=== PATIENT | female | born 1995 | race African-American/Black ===

== ENCOUNTER 2019-01-22 00:58 | Emergency (ER) | payer MEDICAID, OTHER ==
[~2019-01-22] VITALS: Ht 162.6 cm; Wt 59.9 kg
[~2019-01-22 00:58] MED LIST: IBUPROFEN600 MG ORAL; TRAMADOL HCL50 MG ORAL
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
[2019-01-22 01:43] VITALS: BP 111/71
[2019-01-22] MEDS ORDERED: IBUPROFEN600 MG ORAL (02:34)
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
== END 2019-01-22 02:42 | disposition home or self-care (01) ==
LOC: EMR 02:00
DX: S16.1XXA Strain of muscle, fascia and tendon at neck level, initial encounter (principal); S39.012A Strain of muscle, fascia and tendon of lower back, initial encounter; V43.52XA Car driver injured in collision with other type car in traffic accident, initial encounter; Y92.410 Unspecified street and highway as the place of occurrence of the external cause
CPT/HCPCS: 72040; 99283

== ENCOUNTER 2019-07-20 07:24 | Emergency (ER) | payer OTHER ==
[~2019-07-20] VITALS: Ht 162.6 cm; Wt 60.3 kg
[2019-07-20] MEDS ORDERED: NKM (07:31)
[2019-07-20 07:35] VITALS: BP 117/60
[2019-07-20] MEDS ORDERED: Albuterol ud Inhalation HHN ONE (07:45)
--- NOTE | 2019-07-20 07:49 | Emergency Room Report ---
History of Present Illness General Chief Complaint: Upper Respiratory Illness Source: Patient Present Illness HPI Patient presents with 4 days of cough and sore throat. She is producing green phlegm without any blood. She denies any fevers or chills. When this began she had a headache. She did not receive a flu vaccination. She does not hear herself wheezing. She has no history of asthma. There is no nausea, vomiting, diarrhea or dysuria. She denies muscle aches or joint pain at this time. There is no rash. Last menstruation was recent and she does not believe she is at this time. Not exposed to cigarette smoke. 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 Last Menstrual Period: 06/01/19 Now: No Reviewed Nursing Documentation: PMH: Agreed; PSxH: Agreed Nursing Documentation-PMH Past Medical History: No Stated History Review of Systems All Other Systems: negative except mentioned in HPI Physical Exam Vital Signs Date Time Temp Pulse Resp B/P (MAP) Pulse Ox O2 Delivery O2 Flow Rate FiO2 07/20/19 07:28 97.9 76 18 119/74 (89) 100 Room Air Sp02 EP Interpretation: reviewed, normal General Appearance: well appearing, no apparent distress, GCS 15 Head: normocephalic Eyes: bilateral eye normal inspection, bilateral eye PERRL, bilateral eye EOMI ENT: moist mucus membranes, pharyngeal erythema Neck: supple Respiratory: no respiratory distress, crackles - Left base, speaking full sentences Cardiovascular #1: regular rate, rhythm Cardiovascular #2: 2+ radial (R) Gastrointestinal: normal inspection, normal bowel sounds, non tender, no mass, non-distended Musculoskeletal: back normal, normal range of motion Neurologic: alert, oriented x3, grossly normal Psychiatric: mood/affect normal Skin: no rash Medical Decision Making Diagnostic Impression: Primary Impression: Atypical pneumonia ER Course Patient presents with 4 days of cough and sore throat. Differential includes strep, viral, pneumonia and possibly bronchospasm. Due to the exam chest x-ray is indicated. Also the patient will be receiving a breathing treatment with albuterol. Without fever and based on the exam influenza is less likely. Increase king right base. Urinalysis negative and negative test. Improved with treatment. Antibiotics begun for abnormal x-ray. Discussed findings with patient and treatment plan. Patient stable for outpatient observation and treatment. Laboratory Tests Test 07/20/19 08:25 Urine Color Pale yellow Urine Appearance Clear Urine pH 6 (4.5-8.0) Urine Specific [place] 1.020 (1.005-1.035) Urine Protein Negative (NEGATIVE) Urine Glucose (UA) Negative (NEGATIVE) Urine Ketones Negative (NEGATIVE) Urine Blood Negative (NEGATIVE) Urine Nitrite Negative (NEGATIVE) Urine Bilirubin Negative (NEGATIVE) Urine Urobilinogen Normal MG/DL (0.0-1.0) Urine Leukocyte Esterase 1+ (NEGATIVE) H Urine RBC 0 /HPF (0 - 2) Urine WBC 0-2 /HPF (0 - 2) Urine Squamous Epithelial Cells Occasional /LPF Urine Bacteria Few /HPF (NONE) Urine HCG, Qualitative Negative (NEGATIVE) Chest X-Ray Diagnostic Results Chest X-Ray Diagnostic Results : Chest X-Ray Ordered: Yes # of Views/Limited/Complete: 1 View Indication: Other EP Interpretation: Yes Interpretation: no effusion, no pneumothorax, other - increased king RLL, nipple piercings Impression: Other Electronically Signed by: Electronically signed by Florentin Maradiaga MD Last Vital Signs Date Time Temp Pulse Resp B/P (MAP) Pulse Ox O2 Delivery O2 Flow Rate FiO2 07/20/19 09:26 97.3 86 18 125/63 100 Room Air 07/20/19 08:19 21 Status: improved Disposition: HOME, SELF-CARE Condition: Improved Scripts Albuterol Sulfate* (ALBUTEROL SULFATE MDI*) 8.5 Gm Hfa.aer.ad 2 PUFF INH Q6H PRN for cough or wheezing, #1 EA 0 Refills Prov: Florentin Maradiaga MD 07/20/19 Azithromycin* (ZITHROMAX*) 250 Mg Tablet 250 MG ORAL DAILY, #4 TAB Prov: Florentin Maradiaga MD 07/20/19 Guaifenesin/Codeine Phos* (ROBITUSSIN AC*) 118 Ml Liquid 5 ML ORAL Q6H PRN for For Cough, #60 ML 0 Refills Prov: Florentin Maradiaga MD 07/20/19 Referrals: [facility],REFERRING (PCP) Florentin Maradiaga MD Jul 20, 2019 07:49
[2019-07-20] MEDS ORDERED: Azithromycin 250mg tab ORAL ONE (08:30)
[2019-07-20 08:31] VITALS: BP 116/66
[2019-07-20 08:37] LABS: APPEARANCE,URINE CLEAR; BILIRUBIN, URINE NEGATIVE (NEGATIVE); COLOR,URINE PALE YELLOW; GLUCOSE, URINE (UA) NEGATIVE (NEGATIVE); KETONES,URINE NEGATIVE (NEGATIVE); LEUKOCYTE ESTERASE ,URINE 1+ (NEGATIVE); NITRITE,URINE NEGATIVE (NEGATIVE); PH,URINE 6 (4.5-8.0); PROTEIN,URINE NEGATIVE (NEGATIVE); UROBILINOGEN,URINE NORMAL MG/DL (0.0-1.0)
[2019-07-20] MEDS ORDERED: ALBUTEROL SULF8.5 GM INH (08:46)
[2019-07-20] MEDS ORDERED: ZITHROMAX250 MG ORAL (08:46)
[2019-07-20] MEDS ORDERED: GUAIFENESIN-CO118 M1 ORAL (08:46)
[2019-07-20 09:26] VITALS: BP 125/63
--- NOTE | 2019-07-20 10:07 | Diagnostic Imaging Report ---
Indication: Cough Technique: One view of the chest Comparison: none Findings: Lungs and pleural spaces are clear. Heart size is normal. Impression: No acute process
== END 2019-07-20 09:26 | disposition home or self-care (01) ==
LOC: EMR 07:40
DX: J18.9 Pneumonia, unspecified organism (principal); R51 Headache
CPT/HCPCS: 71045; 81003; 81025; Q0144; Z7502; 99284

== ENCOUNTER 2019-07-27 22:52 | Emergency (ER) | payer OTHER ==
[~2019-07-27] VITALS: Ht 162.6 cm; Wt 59.9 kg
[~2019-07-27 22:52] MED LIST changes: +ALBUTEROL SULF8.5 GM INH; +GUAIFENESIN-CO118 M1 ORAL; +NKM; +ZITHROMAX250 MG ORAL
[2019-07-27 23:03] VITALS: BP 110/60
--- NOTE | 2019-07-27 23:04 | NUR ---
ED Nurse Note: PT walked in to ED for C/O pain with laceration to left thumb area while cutting something with a blade. no active bleeding present at this time.
[2019-07-27] MEDS ORDERED: BACITRACIN1 EACH TOPIC (23:58)
--- NOTE | 2019-07-27 23:58 | Emergency Room Report ---
History of Present Illness General Chief Complaint: Laceration Source: Patient Present Illness HPI 24-year-old female who presents with 1 cm distal laceration to left thumb. She sustained laceration while she was at work cutting opening boxes with a steam box hand. She stated the injury happened at 4 AM. She went home fell asleep and did not get evaluated until tonight. Patient cleaned wound with soap and water. She also used a peroxide-like cleaning agent. Patient does not know her last tetanus immunization Allergies: Coded Allergies: NO KNOWN ALLERGIES (Unverified Allergy, Unknown, 01/22/19) Nursing Documentation-[facility] Past Medical History: No Stated History Review of Systems Constitutional: Denies: chills, fever Respiratory: Denies: cough, shortness of breath Cardiovascular: Denies: chest pain, palpitations Gastrointestinal: Denies: diarrhea, vomiting Genitourinary: Denies: hematuria, pain Musculoskeletal: Denies: joint swelling Skin: Reports: other - Laceration; Denies: rash, lesions Neurological: Denies: headache, dizziness Physical Exam Vital Signs Date Time Temp Pulse Resp B/P (MAP) Pulse Ox O2 Delivery O2 Flow Rate FiO2 07/27/19 22:58 98.1 76 19 105/62 (76) 99 Room Air Sp02 EP Interpretation: reviewed General Appearance: well appearing, no apparent distress, non-toxic Head: normocephalic, atraumatic Eyes: bilateral eye normal inspection ENT: hearing grossly normal, EOM grossly intact, moist mucus membranes Neck: supple Respiratory: lungs clear, normal breath sounds, no respiratory distress, speaking full sentences Cardiovascular #1: regular rate, rhythm, normal capillary refill Cardiovascular #2: 2+ radial (R), 2+ radial (L) Gastrointestinal: soft, non-distended Rectal: deferred Musculoskeletal: moves extm spontaneously, no lower extremity edema Neurologic: grossly normal Psychiatric: mood/affect normal Skin: warm/dry, normal turgor, laceration - 1 cm linear laceration to distal left thumb, no active bleeding, clean, dry Medical Decision Making Diagnostic Impression: Primary Impression: Thumb laceration ER Course Superficial left thumb laceration occurring at 4 AM yesterday.unknown last tetanus immunization. Greater than 12 hours at this time will not repair with closed sutures. Small amount of granulation tissue already noted. Recommended keeping wound clean dry and intact. Patient given immunization to tetanus. Patient recommend follow-up in 2 to 3 days for wound check and reevaluation. Last Vital Signs Date Time Temp Pulse Resp B/P (MAP) Pulse Ox O2 Delivery O2 Flow Rate FiO2 07/27/19 23:03 98.0 88 19 110/60 99 Room Air Disposition: HOME, SELF-CARE Condition: Stable Scripts Bacitracin (BACITRACIN*) 1 Each Packet 1 PACKET TOPIC BID for 5 Days, #10 PACKET 0 Refills Prov: Sae Hansen M.D. 07/27/19 Patient Instructions: Laceration Care, Adult Additional Instructions: Please follow-up with primary care doctor in 2 to 3 days for reevaluation. Return to emergency room if you have worsening redness, severe pain or any new symptoms to the injury Sae Hansen M.D. Jul 27, 2019 23:58
[2019-07-28] MEDS ORDERED: Tetanus/Diptheria/Pertussis IM ONE ×2 (00:03)
[2019-07-28] MEDS ORDERED: Bacitracin Oint UD TOPIC ONE ×2 (00:03)
[2019-07-28 00:26] VITALS: BP 115/65
--- NOTE | 2019-07-28 00:26 | NUR ---
ER DISCHARGE NOTE: Patient is cleared to be discharged per ERMD, pt is aox4, on room air, with stable vital signs. pt was given dc and prescription instructions, pt was able to verbalize understanding, pt id band removed without complications. pt is able to ambulate with steady gait. pt took all belongings.
== END 2019-07-28 00:26 | disposition home or self-care (01) ==
LOC: EMR 23:56
DX: S61.012A Laceration without foreign body of left thumb without damage to nail, initial encounter (principal); W26.8XXA Contact with other sharp object(s), not elsewhere classified, initial encounter; Y93.89 Activity, other specified; Y92.9 Unspecified place or not applicable
CPT/HCPCS: 90471; 90715; Z7502; 99282

== ENCOUNTER 2019-09-17 22:54 | Emergency (ER) | payer OTHER ==
[~2019-09-17] VITALS: Ht 162.6 cm; Wt 60.8 kg
[~2019-09-17 22:54] MED LIST changes: +BACITRACIN1 EACH TOPIC
[2019-09-17 23:20] VITALS: BP 122/75
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
--- NOTE | 2019-09-17 23:26 | NUR ---
ED Nurse Note: ERMD at bedside.
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
[2019-09-18 00:12] LABS: APPEARANCE,URINE CLEAR; BILIRUBIN, URINE NEGATIVE (NEGATIVE); COLOR,URINE PALE YELLOW; GLUCOSE, URINE (UA) NEGATIVE (NEGATIVE); KETONES,URINE NEGATIVE (NEGATIVE); LEUKOCYTE ESTERASE ,URINE NEGATIVE (NEGATIVE); NITRITE,URINE NEGATIVE (NEGATIVE); PH,URINE 6 (4.5-8.0); PROTEIN,URINE NEGATIVE (NEGATIVE); UROBILINOGEN,URINE NORMAL MG/DL (0.0-1.0)
[2019-09-18] MEDS ORDERED: IBUPROFEN600 MG ORAL (00:20)
[2019-09-18 00:22] VITALS: BP 128/76
--- NOTE | 2019-09-18 00:22 | NUR ---
ER DISCHARGE NOTE: Patient is cleared to be discharged per ERMD, pt is aox4, on room air, with stable vital signs. pt was given dc and prescription instructions, pt was able to verbalize understanding, pt id band removed. pt is able to ambulate with steady gait. pt took all belongings. pt stable upon discharge.
== END 2019-09-18 00:22 | disposition home or self-care (01) ==
LOC: EMR 23:07
DX: S39.012A Strain of muscle, fascia and tendon of lower back, initial encounter (principal); V43.52XA Car driver injured in collision with other type car in traffic accident, initial encounter; Y92.410 Unspecified street and highway as the place of occurrence of the external cause
CPT/HCPCS: 81003; Z7502; 99283

== ENCOUNTER 2020-02-18 21:05 | Emergency (ER) | payer MEDICAID, OTHER ==
[~2020-02-18] VITALS: Ht 162.6 cm; Wt 61.2 kg
[2020-02-18 21:20] VITALS: BP 110/72
--- NOTE | 2020-02-18 21:20 | NUR ---
ED Nurse Note: Patient walked into ED c/o right outer thigh skin rash, states that she might have been possibly bit by a bug however denies seeing an insect bite her, rash is about 3 inches in diameter, denies any drainage. patient denies any fevers or chills. patient is alert and oriented x4, ambulatroy with a steady gait, VSS
--- NOTE | 2020-02-18 21:43 | Emergency Room Report ---
History of Present Illness General Chief Complaint: Skin Rash/Abscess Source: Patient Present Illness HPI Patient presents with swelling, itching and tenderness the right upper thigh that is been present for 2 to 3 days. She believes she may have sustained a spider bite. She denies fevers or chills. She is mainly complaining of itching pain. The pain is reported 10/10, nonradiating with pressure and itching with slight aching. She denies any numbness. She denies diabetes. The discomfort is worse when she is standing. There is some throbbing at that time. Last tetanus age 15. She states her last menstruation was normal. She does not believe she is at this time. 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 Last Menstrual Period: 01/28/2020 Reviewed Nursing Documentation: PMH: Agreed; PSxH: Agreed Nursing Documentation-PMH Past Medical History: No Stated History Review of Systems Constitutional: Reports: see HPI Genitourinary: Reports: see HPI Musculoskeletal: Reports: see HPI Skin: Reports: see HPI Neurological: Reports: see HPI Physical Exam Vital Signs Date Time Temp Pulse Resp B/P (MAP) Pulse Ox O2 Delivery O2 Flow Rate FiO2 02/18/20 21:16 99.0 79 18 106/70 (82) 99 Room Air Sp02 EP Interpretation: reviewed, normal General Appearance: well appearing, no apparent distress, GCS 15 Head: normocephalic Eyes: bilateral eye normal inspection, bilateral eye PERRL ENT: moist mucus membranes Neck: normal inspection Respiratory: normal inspection Cardiovascular #1: regular rate, rhythm Cardiovascular #2: 2+ radial (R) Gastrointestinal: normal inspection Musculoskeletal: gait/station normal, no calf tenderness, tenderness - Right upper mid thigh Neurologic: alert, oriented x3, grossly normal Psychiatric: mood/affect normal Skin: normal color, warm/dry, other - Induration and slight erythema 2 x 5 cm right anterior mid thigh no fluctuance Medical Decision Making Diagnostic Impression: Primary Impression: Insect bite Qualified Codes: S70.361A - Insect bite (nonvenomous), right thigh, initial encounter; W57.XXXA - Bitten or stung by nonvenomous insect and other nonvenomous arthropods, initial encounter Additional Impression: Cellulitis Qualified Codes: L03.115 - Cellulitis of right lower limb ER Course Patient presents with presumed insect bite right anterior thigh. Differential includes cellulitis, bite reaction, cellulitis amongst others. There is no fluctuance and therefore incision and drainage is not indicated at this time. There is no evidence of systemic reaction. Patient's tetanus status is up-to- date. Antibiotics, both oral and topical are indicated. In addition Tylenol and Benadryl will be given. Discussed treatment plan with patient. She understands. She also understands to return if this is not improving within 2 days. Patient stable for outpatient observation and treatment. Last Vital Signs Date Time Temp Pulse Resp B/P (MAP) Pulse Ox O2 Delivery O2 Flow Rate FiO2 02/18/20 21:55 99.0 70 16 110/78 98 Room Air Status: improved Disposition: HOME, SELF-CARE Condition: Improved Scripts Acetaminophen (Tylenol) 325 Mg Tablet 650 MG ORAL Q6H PRN for Prn Pain/Headache/Temp > 101, #20 TAB 0 Refills Prov: Florentin Maradiaga MD 02/18/20 Diphenhydramine Hcl* (BENADRYL*) 25 Mg Capsule 25 MG ORAL Q6H PRN for Itching, #14 CAP Prov: Florentin Maradiaga MD 02/18/20 Bacitracin (Bacitracin) 28.4 Gm Oint...g. 1 APPLIC TOPIC BID, #20 GM Prov: Florentin Maradiaga MD 02/18/20 Trimethoprim/Sulfamethoxazole 160/800* (BACTRIM DS TABLET*) 1 Each Tablet 1 TAB ORAL Q12H, #14 TAB 0 Refills Prov: Florentin Maradiaga MD 02/18/20 Florentin Maradiaga MD Feb 18, 2020 21:43
[2020-02-18] MEDS ORDERED: Bactrim-DS 1 tab ORAL ONE (21:45)
[2020-02-18] MEDS ORDERED: Bacitracin Oint UD TOPIC ONE (21:45)
[2020-02-18] MEDS ORDERED: BACTRIM DS TAB1 EAC1 ORAL (21:46)
[2020-02-18] MEDS ORDERED: TYLENOL325 MG ORAL (21:46)
[2020-02-18] MEDS ORDERED: BACITRACIN15 GM TOPIC (21:46)
[2020-02-18] MEDS ORDERED: BENADRYL25 MG ORAL (21:46)
[2020-02-18 21:55] VITALS: BP 110/78
--- NOTE | 2020-02-18 21:55 | NUR ---
ER DISCHARGE NOTE: Patient is cleared to be discharged per ERMD, pt is aox4, on room air, with stable vital signs. pt was given dc and prescription instructions with work note, pt was able to verbalize understanding, pt id band removed. pt is able to ambulate with steady gait. pt took all belongings. pt stable upon discharge.
== END 2020-02-18 21:55 | disposition home or self-care (01) ==
LOC: EMR 21:25
DX: S70.361A Insect bite (nonvenomous), right thigh, initial encounter (principal); W57.XXXA Bitten or stung by nonvenomous insect and other nonvenomous arthropods, initial encounter; L03.115 Cellulitis of right lower limb
CPT/HCPCS: 99282

== ENCOUNTER 2020-02-25 00:29 | Emergency (ER) | payer MEDICAID ==
[~2020-02-25 00:29] MED LIST changes: +BACITRACIN15 GM TOPIC; +BACTRIM DS TAB1 EAC1 ORAL; +BENADRYL25 MG ORAL; +TYLENOL325 MG ORAL
[2020-02-25] MEDS ORDERED: ACETAMINOPHEN500 M3 ORAL (01:35)
== END 2020-02-25 01:35 | disposition home or self-care (01) ==
DX: M54.5 Low back pain (principal); M25.572 Pain in left ankle and joints of left foot; M25.571 Pain in right ankle and joints of right foot